=== PATIENT | female | born 1955 | race Caucasian/White ===

== ENCOUNTER 2018-05-19 13:07 | Inpatient (IN) | payer MEDICARE, MEDICAID ==
[~2018-05-19] VITALS: Ht 165.1 cm; Wt 53.6 kg
[~2018-05-19 13:07] MED LIST: CLA10T PO; GLIM1TAB46 PO; LISI-222 PO; LOP25T PO; METF500T PO
[2018-05-19 13:51] LABS: BASOPHILS % (AUTO) 0.5 % (0-1); EOSINOPHILS # (AUTO) 0.1 X10'3 (0-0.9); EOSINOPHILS % (AUTO) 1.3 % (0-6); HEMATOCRIT 40.9 % (35.0-45.0); HEMOGLOBIN 13.1 g/dl (12.0-16.0); LYMPHOCYTES # (AUTO) 1.1 X10'3 (1.1-4.8); LYMPHOCYTES % (AUTO) 13.7 % (21-51); MEAN CORPUSCULAR VOLUME 90.5 FL (78-98); MEAN PLATELET VOLUME 9.4 FL (7.4-10.4); MONOCYTES # (AUTO) 0.4 X10'3 (0-0.9); NEUTROPHILS # (AUTO) 6.6 X10'3 (1.8-7.7); NEUTROPHILS % (AUTO) 79.5 % (42-75); PLATELET COUNT 229 X10'3 (140-440); RED BLOOD COUNT 4.51 X10'6 (4.20-5.60); WHITE BLOOD COUNT 8.3 X10'3 (4.5-11.0)
[2018-05-19] MEDS ORDERED: ipratropium/albuterol 3ml nebule NEB ONE (14:00)
[2018-05-19] MEDS ORDERED: predniSONE 20 mg tablet PO ONE (14:00)
[2018-05-19 14:06] LABS: ALANINE AMINOTRANSFERASE 43 U/L (12-78); ALBUMIN 3.3 G/DL (3.4-5.0); ALBUMIN/GLOBULIN RATIO 1.1 (1.1-1.5); ALKALINE PHOSPHATASE 99 IU/L (46-116); ANION GAP 9 (8-16); ASPARTATE AMINO TRANSFERASE 25 U/L (10-37); BILIRUBIN,TOTAL 0.5 MG/DL (0.1-1.0); BLOOD UREA NITROGEN 27 MG/DL (7-18); BUN/CREATININE RATIO 37.5 (6.6-38.0); CHLORIDE 101 MMOL/L (99-107); CREATININE 0.72 MG/DL (0.40-0.90); GLUCOSE 203 MG/DL (70-104); SODIUM 138 MMOL/L (135-145); TOTAL CARBON DIOXIDE 28.4 MMOL/L (24-32); TOTAL PROTEIN 6.2 G/DL (6.4-8.2); eGFR 82 ML/MIN
[2018-05-19 14:13] LABS: INR 1.1 INR; PARTIAL THROMBOPLASTIN TIME 26 SECONDS (22-32)
[2018-05-19] MEDS ORDERED: aspirin 325mg tablet PO ONE (14:20)
[2018-05-19 14:34] LABS: D-DIMER 0.59 MG/L FEU (0-0.50)
[2018-05-19] MEDS ORDERED: furosemide 10 MG/1 ML 10ml inj IV ONE (14:55)
[2018-05-19] MEDS ORDERED: ondansetron/PF 4mg/2ml inj IV PRN (15:15)
[2018-05-19] MEDS ORDERED: mag hydrox/Alum hydrox/simeth 30ml oral suspension PO PRN (15:15)
[2018-05-19] MEDS ORDERED: acetaminophen 325mg tablet PO PRN (15:15)
[2018-05-19] MEDS ORDERED: magnesium hydroxide 30ml (MOM) UD suspension PO PRN (15:15)
[2018-05-19] MEDS ORDERED: potassium Cl 40MEQ/NS 500ml 500 ML IV PRN ×2 (15:15)
[2018-05-19] MEDS ORDERED: HYDROmorphone 1 mg/ml syringe IV PRN (15:15)
[2018-05-19] MEDS ORDERED: potassium Cl 20 mEq SR tablet PO PRN (15:15)
[2018-05-19] MEDS ORDERED: magnesium 4gm in 100ml NS 100 ML IV PRN (15:15)
[2018-05-19] MEDS ORDERED: iohexol 350MG/ML 100ml bottle IV ONE (15:20)
[2018-05-19] MEDS ORDERED: dextrose ORAL solution 15 GM/59 ML bottle PO PRN ×2 (15:25)
[2018-05-19] MEDS ORDERED: MESSAGE TO PHARMACY PO ONE (15:25)
[2018-05-19] MEDS ORDERED: dextrose 50%-water 50ml dispensing syringe IV PRN ×2 (15:25)
[2018-05-19] MEDS ORDERED: glucagon, human recombinant 1mg kit SUBCUT PRN (15:25)
[2018-05-19] MEDS ORDERED: azithromycin/NS 500mg/250ml 250 ML IV ONE (15:25)
[2018-05-19] MEDS: K and/or MAG REPLACEMENT MC SCH (15:30)
[2018-05-19] MEDS: CefTRIAXone/D5W-Rocephin 1gm 50 ML IV SCH (16:48)
[2018-05-19] MEDS: lisinopril 5mg tablet PO SCH (17:23)
[2018-05-19 17:27] LABS: HEMOGLOBIN A1C 8.1 % (4.5-6.2)
[2018-05-19] MEDS ORDERED: metoprolol tartrate 12.5mg (1/2 tablet) PO SCH (20:00)
[2018-05-19] MEDS ORDERED: CLOP75TA15 PO (21:33)
[2018-05-19] MEDS ORDERED: FURO20TA4 PO (21:33)
[2018-05-19] MEDS ORDERED: DIPH50CA46 PO (21:33)
[2018-05-19] MEDS ORDERED: HYDR-3965 PO (21:33)
[2018-05-19] MEDS ORDERED: ATOR40TA PO (21:33)
[2018-05-19] MEDS ORDERED: CARV3.122 PO (21:33)
[2018-05-19] MEDS ORDERED: LISI-604 PO (21:33)
[2018-05-19] MEDS ORDERED: METF1000 PO (21:33)
[2018-05-19] MEDS ORDERED: INSU100I31 SUBCUT (21:38)
[2018-05-19 22:00] VITALS: BP 148/86
[2018-05-19] MEDS: insulin glargine (Lantus) pen - multi-dose SQ SCH (22:44)
[2018-05-19] MEDS: insulin Lispro (HumaLOG) vial - multi-dose SQ SCH (22:46)
[2018-05-19] MEDS: furosemide 40mg/4ml inj IV SCH (22:47)
[2018-05-19] MEDS: methylPREDNISolone sod succ/PF 40mg inj. IV SCH (22:56)
[2018-05-19] MEDS: heparin, porcine 5000 units/ml vial SQ SCH (22:59)
[2018-05-19] MEDS ORDERED: HYDROcodone/acetaminophen 5mg/325mg tablet PO PRN (23:25)
[2018-05-19] MEDS: HYDROcodone/acetaminophen 10/325mg tab PO PRN (23:28)
[2018-05-20] MEDS: methylPREDNISolone sod succ/PF 40mg inj. IV SCH ×2 (02:00→07:47)
[2018-05-20] MEDS: HYDROcodone/acetaminophen 10/325mg tab PO PRN ×5 (04:35→21:59)
[2018-05-20 06:00] VITALS: BP 131/80
[2018-05-20 06:11] LABS: BASOPHILS % (AUTO) 0.4 % (0-1); EOSINOPHILS # (AUTO) 0.1 X10'3 (0-0.9); EOSINOPHILS % (AUTO) 0.9 % (0-6); LYMPHOCYTES # (AUTO) 0.6 X10'3 (1.1-4.8); LYMPHOCYTES % (AUTO) 9.6 % (21-51); MEAN CORPUSCULAR HEMOGLOBIN 29.1 PG (27.0-31.0); MEAN CORPUSCULAR HGB CONC 32.5 % (33.0-36.5); MEAN CORPUSCULAR VOLUME 89.5 FL (78-98); MEAN PLATELET VOLUME 9.9 FL (7.4-10.4); MONOCYTES # (AUTO) 0.1 X10'3 (0-0.9); MONOCYTES % (AUTO) 1.7 % (2-12); NEUTROPHILS # (AUTO) 5.9 X10'3 (1.8-7.7); NEUTROPHILS % (AUTO) 87.4 % (42-75); PLATELET COUNT 237 X10'3 (140-440); RED BLOOD COUNT 4.81 X10'6 (4.20-5.60); RED CELL DISTRIBUTION WIDTH 14.9 % (11.5-14.5); WHITE BLOOD COUNT 6.8 X10'3 (4.5-11.0)
[2018-05-20 06:48] LABS: ALANINE AMINOTRANSFERASE 40 U/L (12-78); ALBUMIN 3.3 G/DL (3.4-5.0); ALBUMIN/GLOBULIN RATIO 1.1 (1.1-1.5); ALKALINE PHOSPHATASE 107 IU/L (46-116); ANION GAP 11 (8-16); ASPARTATE AMINO TRANSFERASE 18 U/L (10-37); BILIRUBIN,TOTAL 0.3 MG/DL (0.1-1.0); BLOOD UREA NITROGEN 36 MG/DL (7-18); BUN/CREATININE RATIO 38.3 (6.6-38.0); CALCIUM 8.7 MG/DL (8.5-10.1); CHLORIDE 99 MMOL/L (99-107); CREATININE 0.94 MG/DL (0.40-0.90); GLUCOSE 378 MG/DL (70-104); MAGNESIUM 1.3 MG/DL (1.5-2.4); POTASSIUM 3.8 MMOL/L (3.5-5.1); SODIUM 137 MMOL/L (135-145); TOTAL CARBON DIOXIDE 27.4 MMOL/L (24-32); TOTAL PROTEIN 6.3 G/DL (6.4-8.2); eGFR 60 ML/MIN
[2018-05-20] MEDS: furosemide 40mg/4ml inj IV SCH ×2 (07:47→19:31)
[2018-05-20] MEDS: lisinopril 5mg tablet PO SCH (07:47)
[2018-05-20] MEDS: aspirin 81mg tab.chew PO SCH (07:47)
[2018-05-20] MEDS: CefTRIAXone/D5W-Rocephin 1gm 50 ML IV SCH (07:48)
[2018-05-20] MEDS: heparin, porcine 5000 units/ml vial SQ SCH ×2 (07:48→19:31)
[2018-05-20] MEDS ORDERED: HYDROcodone/acetaminophen 5mg/325mg tablet PO PRN (08:00)
[2018-05-20] MEDS: lisinopril 10 MG tablet PO SCH (08:00)
[2018-05-20] MEDS: insulin Lispro (HumaLOG) vial - multi-dose SQ SCH ×3 (09:14→18:38)
[2018-05-20] MEDS: loratadine 10mg tablet PO SCH (09:18)
[2018-05-20] MEDS: nicotine 14mg patch - 24hr TD SCH (09:18)
[2018-05-20] MEDS: carVEDilol 3.125mg tablet PO SCH ×2 (09:18→19:31)
[2018-05-20] MEDS: magnesium Cl slow-release 64mg tablet PO PRN ×2 (09:18→19:35)
[2018-05-20] MEDS: atorvastatin 20mg tablet PO SCH (09:19)
[2018-05-20] MEDS: clopidogrel 75mg tablet PO SCH (09:19)
[2018-05-20 10:01] VITALS: BP 134/109
[2018-05-20 18:00] VITALS: BP 126/82
[2018-05-20 19:26] VITALS: BP 143/79
[2018-05-20] MEDS: lactobacillus rhamnosus 10,000 MMU CELLS/CAPSULE PO SCH (19:31)
[2018-05-20] MEDS: insulin glargine (Lantus) pen - multi-dose SQ SCH ×2 (20:53→21:00)
[2018-05-20] MEDS ORDERED: diphenhydrAMINE 25mg capsule PO PRN (21:00)
[2018-05-20 22:00] VITALS: BP 152/68
[2018-05-21 06:30] LABS: BASOPHILS # (AUTO) 0.1 X10'3 (0-0.2); BASOPHILS % (AUTO) 0.4 % (0-1); EOSINOPHILS # (AUTO) 0.2 X10'3 (0-0.9); EOSINOPHILS % (AUTO) 1.3 % (0-6); HEMATOCRIT 44.8 % (35.0-45.0); HEMOGLOBIN 14.5 g/dl (12.0-16.0); LYMPHOCYTES # (AUTO) 2.2 X10'3 (1.1-4.8); MEAN CORPUSCULAR HEMOGLOBIN 29.2 PG (27.0-31.0); MEAN CORPUSCULAR HGB CONC 32.3 % (33.0-36.5); MEAN CORPUSCULAR VOLUME 90.4 FL (78-98); MEAN PLATELET VOLUME 9.5 FL (7.4-10.4); MONOCYTES # (AUTO) 0.8 X10'3 (0-0.9); MONOCYTES % (AUTO) 6.5 % (2-12); NEUTROPHILS # (AUTO) 9.8 X10'3 (1.8-7.7); NEUTROPHILS % (AUTO) 74.8 % (42-75); PLATELET COUNT 252 X10'3 (140-440); RED BLOOD COUNT 4.96 X10'6 (4.20-5.60); RED CELL DISTRIBUTION WIDTH 14.9 % (11.5-14.5); WHITE BLOOD COUNT 13.1 X10'3 (4.5-11.0)
[2018-05-21 06:49] LABS: ALBUMIN 3.1 G/DL (3.4-5.0); ANION GAP 7 (8-16); BLOOD UREA NITROGEN 34 MG/DL (7-18); BUN/CREATININE RATIO 53.1 (6.6-38.0); CALCIUM 8.7 MG/DL (8.5-10.1); CHLORIDE 103 MMOL/L (99-107); CREATININE 0.64 MG/DL (0.40-0.90); GLUCOSE 94 MG/DL (70-104); MAGNESIUM 1.7 MG/DL (1.5-2.4); POTASSIUM 3.2 MMOL/L (3.5-5.1); SODIUM 142 MMOL/L (135-145); TOTAL CARBON DIOXIDE 31.6 MMOL/L (24-32); eGFR > 90 ML/MIN
[2018-05-21 06:52] VITALS: BP 136/97
[2018-05-21] MEDS: heparin, porcine 5000 units/ml vial SQ SCH ×2 (07:28→21:06)
[2018-05-21] MEDS: furosemide 40mg/4ml inj IV SCH ×2 (07:28→21:06)
[2018-05-21] MEDS: aspirin 81mg tab.chew PO SCH (07:29)
[2018-05-21] MEDS: carVEDilol 3.125mg tablet PO SCH ×2 (07:29→21:05)
[2018-05-21] MEDS: predniSONE 20 mg tablet PO SCH (07:29)
[2018-05-21] MEDS: lactobacillus rhamnosus 10,000 MMU CELLS/CAPSULE PO SCH ×2 (07:30→21:05)
[2018-05-21] MEDS: clopidogrel 75mg tablet PO SCH (07:30)
[2018-05-21] MEDS: atorvastatin 20mg tablet PO SCH (07:30)
[2018-05-21] MEDS: lisinopril 10 MG tablet PO SCH (07:30)
[2018-05-21] MEDS: loratadine 10mg tablet PO SCH (07:30)
[2018-05-21] MEDS: nicotine 14mg patch - 24hr TD SCH (07:30)
[2018-05-21] MEDS: CefTRIAXone/D5W-Rocephin 1gm 50 ML IV SCH (07:31)
[2018-05-21] MEDS: HYDROcodone/acetaminophen 10/325mg tab PO PRN ×2 (07:39→21:16)
[2018-05-21] MEDS: K and/or MAG REPLACEMENT MC SCH (07:42)
[2018-05-21] MEDS: potassium Cl 20 mEq SR tablet PO PRN ×2 (07:44→18:53)
[2018-05-21] MEDS: insulin Lispro (HumaLOG) vial - multi-dose SQ SCH ×3 (09:59→18:51)
[2018-05-21 11:12] VITALS: BP 120/82
[2018-05-21 18:00] VITALS: BP 123/68
[2018-05-21] MEDS: insulin glargine (Lantus) pen - multi-dose SQ SCH ×2 (21:00→21:15)
[2018-05-21 21:19] VITALS: BP 113/73
[2018-05-21 22:00] VITALS: BP 144/86
[2018-05-22] MEDS: potassium Cl 20 mEq SR tablet PO PRN (02:04)
[2018-05-22 05:58] LABS: BASOPHILS # (AUTO) 0.1 X10'3 (0-0.2); BASOPHILS % (AUTO) 0.7 % (0-1); EOSINOPHILS # (AUTO) 0.1 X10'3 (0-0.9); EOSINOPHILS % (AUTO) 0.8 % (0-6); HEMATOCRIT 43.5 % (35.0-45.0); LYMPHOCYTES # (AUTO) 2.6 X10'3 (1.1-4.8); LYMPHOCYTES % (AUTO) 23.2 % (21-51); MEAN CORPUSCULAR HEMOGLOBIN 28.9 PG (27.0-31.0); MEAN CORPUSCULAR HGB CONC 32.2 % (33.0-36.5); MEAN CORPUSCULAR VOLUME 89.7 FL (78-98); MEAN PLATELET VOLUME 9.3 FL (7.4-10.4); MONOCYTES # (AUTO) 0.9 X10'3 (0-0.9); MONOCYTES % (AUTO) 8.2 % (2-12); NEUTROPHILS # (AUTO) 7.5 X10'3 (1.8-7.7); NEUTROPHILS % (AUTO) 67.1 % (42-75); PLATELET COUNT 264 X10'3 (140-440); RED BLOOD COUNT 4.85 X10'6 (4.20-5.60); WHITE BLOOD COUNT 11.2 X10'3 (4.5-11.0)
[2018-05-22 06:14] LABS: ANION GAP 5 (8-16); BLOOD UREA NITROGEN 36 MG/DL (7-18); BUN/CREATININE RATIO 48.6 (6.6-38.0); CALCIUM 8.6 MG/DL (8.5-10.1); CHLORIDE 105 MMOL/L (99-107); CREATININE 0.74 MG/DL (0.40-0.90); GLUCOSE 103 MG/DL (70-104); MAGNESIUM 1.9 MG/DL (1.5-2.4); POTASSIUM 4.6 MMOL/L (3.5-5.1); SODIUM 141 MMOL/L (135-145); TOTAL CARBON DIOXIDE 30.6 MMOL/L (24-32); eGFR 79 ML/MIN
[2018-05-22 06:32] VITALS: BP 115/73
[2018-05-22] MEDS: HYDROcodone/acetaminophen 10/325mg tab PO PRN ×3 (07:30→21:20)
[2018-05-22] MEDS: K and/or MAG REPLACEMENT MC SCH (08:00)
[2018-05-22] MEDS: atorvastatin 20mg tablet PO SCH (08:19)
[2018-05-22] MEDS: carVEDilol 3.125mg tablet PO SCH ×2 (08:19→21:10)
[2018-05-22] MEDS: lactobacillus rhamnosus 10,000 MMU CELLS/CAPSULE PO SCH ×2 (08:19→21:10)
[2018-05-22] MEDS: predniSONE 20 mg tablet PO SCH (08:19)
[2018-05-22] MEDS: loratadine 10mg tablet PO SCH (08:19)
[2018-05-22] MEDS: clopidogrel 75mg tablet PO SCH (08:19)
[2018-05-22] MEDS: lisinopril 10 MG tablet PO SCH (08:23)
[2018-05-22] MEDS: aspirin 81mg tab.chew PO SCH (08:23)
[2018-05-22] MEDS: nicotine 14mg patch - 24hr TD SCH (08:26)
[2018-05-22] MEDS: heparin, porcine 5000 units/ml vial SQ SCH ×2 (08:27→21:11)
[2018-05-22] MEDS: insulin Lispro (HumaLOG) vial - multi-dose SQ SCH ×4 (08:58→21:14)
[2018-05-22] MEDS: furosemide 40mg/4ml inj IV SCH ×2 (09:01→21:09)
[2018-05-22] MEDS: CefTRIAXone/D5W-Rocephin 1gm 50 ML IV SCH (09:01)
[2018-05-22 11:32] VITALS: BP 114/67
[2018-05-22 18:00] VITALS: BP 139/86
[2018-05-22] MEDS: insulin glargine (Lantus) pen - multi-dose SQ SCH ×2 (21:00→21:16)
[2018-05-22 22:00] VITALS: BP 140/85
[2018-05-23] MEDS: HYDROcodone/acetaminophen 10/325mg tab PO PRN ×3 (05:25→14:49)
[2018-05-23 06:00] VITALS: BP 133/90
[2018-05-23] MEDS: nicotine 14mg patch - 24hr TD SCH (07:50)
[2018-05-23] MEDS: CefTRIAXone/D5W-Rocephin 1gm 50 ML IV SCH (07:50)
[2018-05-23] MEDS: loratadine 10mg tablet PO SCH (07:54)
[2018-05-23] MEDS: heparin, porcine 5000 units/ml vial SQ SCH (07:54)
[2018-05-23] MEDS: lactobacillus rhamnosus 10,000 MMU CELLS/CAPSULE PO SCH (07:55)
[2018-05-23] MEDS: carVEDilol 3.125mg tablet PO SCH (07:55)
[2018-05-23] MEDS: predniSONE 20 mg tablet PO SCH (07:55)
[2018-05-23] MEDS: atorvastatin 20mg tablet PO SCH (07:55)
[2018-05-23] MEDS: clopidogrel 75mg tablet PO SCH (07:55)
[2018-05-23] MEDS: aspirin 81mg tab.chew PO SCH (07:58)
[2018-05-23] MEDS: lisinopril 10 MG tablet PO SCH (07:58)
[2018-05-23] MEDS: furosemide 40mg/4ml inj IV SCH (07:58)
[2018-05-23] MEDS: insulin Lispro (HumaLOG) vial - multi-dose SQ SCH ×3 (08:40→18:51)
[2018-05-23 10:00] VITALS: BP 103/63
[2018-05-23] MEDS ORDERED: FLUT1BLS3 NAS (15:04)
[2018-05-23] MEDS ORDERED: UMEC62.5 NAS (15:04)
[2018-05-23] MEDS ORDERED: NICO-631 TD (15:04)
[2018-05-23] MEDS ORDERED: FURO40TA4 PO (15:04)
[2018-05-23] MEDS ORDERED: HYDR-3965 PO (15:04)
[2018-05-23] MEDS ORDERED: CEFD300C3 PO (15:04)
[2018-05-23] MEDS ORDERED: ALBU18HF2 INH (15:04)
[2018-05-23] MEDS ORDERED: ASPI-1265 PO (15:04)
== END 2018-05-23 19:00 | disposition home or self-care (01) | DRG 720 ==
LOC: ER 13:07 → ED HOLD 15:14 → ORTHO 4S 21:54
PROVIDERS: ADMIT Internal Medicine; ATTEND Hospitalist
PROC: B32T1ZZ Computerized Tomography (CT Scan) of Left Pulmonary Artery using Low Osmolar Contrast (ICD-10-PCS; principal; 2018-05-19)
PROC: B32S1ZZ Computerized Tomography (CT Scan) of Right Pulmonary Artery using Low Osmolar Contrast (ICD-10-PCS; 2018-05-19)
DX: A41.9 Sepsis, unspecified organism (principal); I50.33 Acute on chronic diastolic (congestive) heart failure; E44.0 Moderate protein-calorie malnutrition; J18.9 Pneumonia, unspecified organism; E11.42 Type 2 diabetes mellitus with diabetic polyneuropathy; I11.0 Hypertensive heart disease with heart failure; J44.1 Chronic obstructive pulmonary disease with (acute) exacerbation; I25.10 Atherosclerotic heart disease of native coronary artery without angina pectoris; E87.6 Hypokalemia; F17.200 Nicotine dependence, unspecified, uncomplicated; J44.0 Chronic obstructive pulmonary disease with (acute) lower respiratory infection; Z68.1 Body mass index [BMI] 19.9 or less, adult; E78.5 Hyperlipidemia, unspecified; G89.29 Other chronic pain; R49.0 Dysphonia; M47.892 Other spondylosis, cervical region; Z95.5 Presence of coronary angioplasty implant and graft; Z79.84 Long term (current) use of oral hypoglycemic drugs; Z79.899 Other long term (current) drug therapy
CPT/HCPCS: 36415; 71045; 71275; 80048; 80053; 82948; 83036; 83735; 83880; 84484; 85025; 85379; 85610; 85730; 87070; 93005; 93306; 94640; 94760; 99285; G0378; J0456; J0696; J1170; J1644; J1815; J1940; J2920; J7512; Q9967

== ENCOUNTER 2018-09-05 18:49 | Inpatient (IN) | payer MEDICARE, MEDICAID | END 2018-09-13 23:45 | disposition short-term general hospital (02) | LOC: ER 18:49 → PCU 3S 21:50 | DX: I21.A1 Myocardial infarction type 2 (principal); I50.23 Acute on chronic systolic (congestive) heart failure; I48.91 Unspecified atrial fibrillation; I34.0 Nonrheumatic mitral (valve) insufficiency; I27.20 Pulmonary hypertension, unspecified; M47.892 Other spondylosis, cervical region ==

== ENCOUNTER 2018-12-15 12:40 | Inpatient (IN) | payer MEDICARE, MEDICAID ==
[~2018-12-15] VITALS: Ht 165.1 cm; Wt 45.0 kg
[~2018-12-15 12:40] MED LIST changes: +ALBU18HF2 INH; +ASPI-1265 PO; +ATOR40TA PO; +CLOP75TA15 PO; +FLUT1BLS3 NAS; -GLIM1TAB46 PO; +INSU100I31 SUBCUT; -LISI-222 PO; +LISI-604 PO; -LOP25T PO; -METF500T PO; +NICO-631 TD; +UMEC62.5 NAS
[2018-12-15 14:06] LABS: BASOPHILS # (AUTO) 0.1 X10'3 (0-0.2); BASOPHILS % (AUTO) 1.2 % (0-1); EOSINOPHILS # (AUTO) 0.1 X10'3 (0-0.9); EOSINOPHILS % (AUTO) 1.2 % (0-6); HEMATOCRIT 40.8 % (35.0-45.0); HEMOGLOBIN 13.1 g/dl (12.0-16.0); LYMPHOCYTES # (AUTO) 1.6 X10'3 (1.1-4.8); MEAN CORPUSCULAR HEMOGLOBIN 27.2 PG (27.0-31.0); MEAN CORPUSCULAR VOLUME 85.1 FL (78-98); MEAN PLATELET VOLUME 8.7 FL (7.4-10.4); MONOCYTES # (AUTO) 0.6 X10'3 (0-0.9); MONOCYTES % (AUTO) 8.5 % (2-12); NEUTROPHILS # (AUTO) 4.5 X10'3 (1.8-7.7); NEUTROPHILS % (AUTO) 66.1 % (42-75); PLATELET COUNT 355 X10'3 (140-440); WHITE BLOOD COUNT 6.8 X10'3 (4.5-11.0)
[2018-12-15 14:15] LABS: PARTIAL THROMBOPLASTIN TIME 24 SECONDS (22-32)
[2018-12-15 14:17] LABS: ALANINE AMINOTRANSFERASE 41 U/L (12-78); ALBUMIN 3.3 G/DL (3.4-5.0); ALBUMIN/GLOBULIN RATIO 0.9 (1.1-1.5); ALKALINE PHOSPHATASE 111 IU/L (46-116); ANION GAP 5 (8-16); ASPARTATE AMINO TRANSFERASE 29 U/L (10-37); BILIRUBIN,TOTAL 0.4 MG/DL (0.1-1.0); BLOOD UREA NITROGEN 19 MG/DL (7-18); BUN/CREATININE RATIO 26.8 (6.6-38.0); CALCIUM 9.4 MG/DL (8.5-10.1); CHLORIDE 102 MMOL/L (99-107); CREATININE 0.71 MG/DL (0.40-0.90); GLUCOSE 75 MG/DL (70-104); POTASSIUM 4.3 MMOL/L (3.5-5.1); SODIUM 139 MMOL/L (135-145); TOTAL CARBON DIOXIDE 32.2 MMOL/L (24-32); TOTAL PROTEIN 6.9 G/DL (6.4-8.2); eGFR 83 ML/MIN
--- NOTE | 2018-12-15 14:25 | NUR ---
ECHO in progress.
--- NOTE | 2018-12-15 14:33 | NUR ---
MEDICAL RELEASE FAXED TO [facility], AWAITING FAX BACK OF OPERATIVE NOTES AND DISCHARGE SUMMARY.
[2018-12-15] MEDS ORDERED: morphine 4 MG/ML inj SYRINge IV ONE (16:30)
[2018-12-15] MEDS ORDERED: oxyCODONE/APAP 10/325mg tablet PO ONE (16:30)
[2018-12-15] MEDS ORDERED: morphine 2 MG/ML inj. syringe IV PRN (17:10)
[2018-12-15] MEDS ORDERED: magnesium 4gm in 100ml NS 100 ML IV PRN (17:10)
[2018-12-15] MEDS ORDERED: potassium Cl 40MEQ/NS 500ml 500 ML IV PRN (17:10)
[2018-12-15] MEDS ORDERED: mag hydrox/Alum hydrox/simeth 30ml oral suspension PO PRN (17:10)
[2018-12-15] MEDS ORDERED: potassium Cl 20 mEq SR tablet PO PRN ×2 (17:10)
[2018-12-15] MEDS ORDERED: magnesium Cl slow-release 64mg tablet PO PRN (17:10)
[2018-12-15] MEDS ORDERED: potassium CL 10mEq/100ml bag 100 ML IV PRN ×2 (17:10→17:50)
[2018-12-15] MEDS ORDERED: acetaminophen 325mg tablet PO PRN ×2 (17:10)
[2018-12-15] MEDS ORDERED: ondansetron/PF 4mg/2ml inj IV PRN (17:10)
[2018-12-15] MEDS ORDERED: magnesium 2GM in 50ml NS 50 ML IV PRN (17:10)
[2018-12-15] MEDS ORDERED: POTA10TA36 PO (17:21)
[2018-12-15] MEDS ORDERED: CLOP75TA35 PO (17:21)
[2018-12-15] MEDS ORDERED: ASPI-1130 PO (17:21)
[2018-12-15] MEDS ORDERED: FURO40TA4 PO (17:21)
[2018-12-15] MEDS ORDERED: METF-438 PO (17:21)
[2018-12-15] MEDS ORDERED: ATOR40TA72 PO (17:21)
[2018-12-15] MEDS ORDERED: LISI10TA4 PO (17:21)
[2018-12-15] MEDS ORDERED: UMEC1DIS PO (17:21)
[2018-12-15] MEDS ORDERED: NICO1PAT36 TOP (17:21)
[2018-12-15] MEDS ORDERED: AZIT-63 PO (17:21)
[2018-12-15] MEDS ORDERED: SPIR25TA5 PO (17:21)
[2018-12-15] MEDS ORDERED: OXYC-511 PO (17:21)
[2018-12-15] MEDS ORDERED: FURO20TA4 PO (17:21)
[2018-12-15] MEDS ORDERED: ALBU18HF2 INH (17:22)
[2018-12-15] MEDS ORDERED: IPRA3AMP31 IH (17:22)
[2018-12-15] MEDS ORDERED: IPRA4AER IH (17:24)
[2018-12-15] MEDS ORDERED: furosemide 10 MG/1 ML 10ml inj IV ONE (17:25)
[2018-12-15] MEDS ORDERED: metoprolol tartrate 1mg/ml inj IV ONE (17:25)
[2018-12-15] MEDS ORDERED: iohexol 350MG/ML 100ml bottle IV ONE (17:43)
--- NOTE | 2018-12-15 17:43 | NUR ---
DR. FAUST AT BEDSIDE.
[2018-12-15] MEDS ORDERED: INSU100I31 SUBCUT (18:12)
[2018-12-15] MEDS ORDERED: glucagon, human recombinant 1mg kit SUBCUT PRN ×2 (18:15→23:10)
[2018-12-15] MEDS ORDERED: MESSAGE TO PHARMACY PO ONE ×2 (18:15→23:10)
[2018-12-15] MEDS ORDERED: dextrose ORAL solution 15 GM/59 ML bottle PO PRN ×4 (18:15→23:10)
[2018-12-15] MEDS ORDERED: dextrose 50%-water 50ml dispensing syringe IV PRN ×2 (18:15)
[2018-12-15] MEDS ORDERED: albuterol 2.5 MG/3 ML nebule NEB PRN (18:35)
--- NOTE | 2018-12-15 19:06 | NUR ---
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
[2018-12-15] MEDS: insulin glargine (Lantus) pen - multi-dose SQ SCH (21:00)
[2018-12-15] MEDS: docusate sod 100mg capsule PO SCH (21:25)
[2018-12-15] MEDS: heparin, porcine 5000 units/ml vial SQ SCH (21:25)
[2018-12-15] MEDS: HYDROcodone/acetaminophen 5mg/325mg tablet PO PRN (21:27)
[2018-12-15 22:00] VITALS: BP 120/79
[2018-12-15] MEDS ORDERED: insulin Lispro (HumaLOG) vial - multi-dose SQ SCH (23:10)
[2018-12-15] MEDS ORDERED: magnesium 2GM in 50ml NS 50 ML IV ONE (23:20)
[2018-12-16 05:34] LABS: ALANINE AMINOTRANSFERASE 41 U/L (12-78); ALBUMIN 3.2 G/DL (3.4-5.0); ALBUMIN/GLOBULIN RATIO 0.9 (1.1-1.5); ALKALINE PHOSPHATASE 119 IU/L (46-116); ANION GAP 9 (8-16); ASPARTATE AMINO TRANSFERASE 28 U/L (10-37); BILIRUBIN,TOTAL 0.3 MG/DL (0.1-1.0); BLOOD UREA NITROGEN 22 MG/DL (7-18); BUN/CREATININE RATIO 25.9 (6.6-38.0); CALCIUM 9.4 MG/DL (8.5-10.1); CHLORIDE 98 MMOL/L (99-107); CREATININE 0.85 MG/DL (0.40-0.90); GLUCOSE 193 MG/DL (70-104); MAGNESIUM 2.6 MG/DL (1.5-2.4); POTASSIUM 3.9 MMOL/L (3.5-5.1); SODIUM 136 MMOL/L (135-145); TOTAL CARBON DIOXIDE 29.4 MMOL/L (24-32); TOTAL PROTEIN 6.7 G/DL (6.4-8.2); TROPONIN I 0.08 NG/ML (0.0-0.05); eGFR 67 ML/MIN
[2018-12-16 05:43] LABS: BASOPHILS # (AUTO) 0.1 X10'3 (0-0.2); EOSINOPHILS # (AUTO) 0.1 X10'3 (0-0.9); HEMATOCRIT 42.4 % (35.0-45.0); HEMOGLOBIN 13.4 g/dl (12.0-16.0); LYMPHOCYTES # (AUTO) 1.8 X10'3 (1.1-4.8); LYMPHOCYTES % (AUTO) 24.3 % (21-51); MEAN CORPUSCULAR HEMOGLOBIN 27.1 PG (27.0-31.0); MEAN CORPUSCULAR HGB CONC 31.7 g/dL (33.0-36.5); MEAN CORPUSCULAR VOLUME 85.7 FL (78-98); MEAN PLATELET VOLUME 9.1 FL (7.4-10.4); MONOCYTES # (AUTO) 0.5 X10'3 (0-0.9); MONOCYTES % (AUTO) 6.8 % (2-12); NEUTROPHILS # (AUTO) 4.8 X10'3 (1.8-7.7); NEUTROPHILS % (AUTO) 65.9 % (42-75); PLATELET COUNT 336 X10'3 (140-440); RED BLOOD COUNT 4.95 X10'6 (4.20-5.60); RED CELL DISTRIBUTION WIDTH 18.3 % (11.5-14.5); WHITE BLOOD COUNT 7.2 X10'3 (4.5-11.0)
[2018-12-16 06:00] VITALS: BP 137/103
--- NOTE | 2018-12-16 06:48 | NUR ---
Patient in room PCU 3026. I have received report from BUNNY Church and had the opportunity to ask questions and assume patient care. Patient is currently resting in bed, bed locked and low, call light in reach, no acute distress, will continue to monitor.
[2018-12-16] MEDS ORDERED: lisinopril 10 MG tablet PO SCH (08:00)
[2018-12-16] MEDS ORDERED: K and/or MAG REPLACEMENT MC SCH (08:00)
[2018-12-16] MEDS ORDERED: CefTRIAXone 2gm/D5W 50ml 50 ML IV SCH (08:00)
[2018-12-16] MEDS ORDERED: UMECLIDINIUM BRM IH SCH (08:00)
[2018-12-16] MEDS ORDERED: VILANTEROL TR IH SCH (08:00)
[2018-12-16] MEDS ORDERED: furosemide 40mg/4ml inj IV SCH (08:00)
[2018-12-16] MEDS ORDERED: nicotine 21mg patch - 24 hr TD SCH (08:00)
[2018-12-16] MEDS ORDERED: atorvastatin 20mg tablet PO SCH (08:00)
[2018-12-16] MEDS ORDERED: clopidogrel 75mg tablet PO SCH (08:00)
[2018-12-16] MEDS ORDERED: spironolactone 25 MG tablet PO SCH (08:00)
[2018-12-16] MEDS ORDERED: aspirin 81mg tablet.DR PO SCH (08:00)
[2018-12-16] MEDS: heparin, porcine 5000 units/ml vial SQ SCH ×2 (08:46→19:41)
[2018-12-16] MEDS: docusate sod 100mg capsule PO SCH ×2 (08:47→19:40)
[2018-12-16] MEDS: insulin Lispro (HumaLOG) vial - multi-dose SQ SCH ×2 (08:49→18:46)
[2018-12-16] MEDS: carVEDilol 3.125mg tablet PO SCH ×2 (09:36→19:40)
[2018-12-16] MEDS: ipratropium/albuterol 3ml nebule NEB PRN ×2 (11:12→16:58)
[2018-12-16 11:39] VITALS: BP 101/65
[2018-12-16] MEDS: HYDROcodone/acetaminophen 5mg/325mg tablet PO PRN ×2 (11:47→21:03)
--- NOTE | 2018-12-16 14:16 | NUR ---
Patient only nibbling at tray, family brought in [facility]. pre-lunch BG was only 75 and patient has been prolonged in eating her food, will recheck blood sugar before dinner and treat appropriately at that time as unable to calculate carbohydrate intake at this time. Non-compliant care plan entered as patient continues to eat items from home after being educated on her prescribed meals.
--- NOTE | 2018-12-16 16:00 | NUR ---
DM Consult: A1C 7.8. Pt not present during RD visit. Written DM ed w/ RD contact information left at bedside in case further questions. BMI noted at 16.5. Pt has mild weakness and edema present but PO 100% heart healthy/carb controlled meals great given current wt meeting needs. Since unable to examine visual signs of malnutrition at this time; pt does not qualify for malnutrition. Will continue to monitor this admit for muscle/fat wasting signs and additional malnutrition criteria. Current wt 45kg chair scale and in August bed scale wt 61kg; likely some error between wt methods. Will need to f/u for more accurate pt hx once pt available to be seen by RD. Addendum: 12/16/18 at [address] Amended: Links added.
[2018-12-16 17:00] VITALS: BP 93/76
--- NOTE | 2018-12-16 17:23 | NUR ---
Paged Case Management: ANGELINA [id number] ACUTE TRANSFER PAPERWORK FAXED FROM [facility], WILL PLACE IN CHART
--- NOTE | 2018-12-16 18:24 | NUR ---
Problems reprioritized. Patient report given, questions answered & plan of care reviewed with BUNNY Church. Patient currently resting in bed, bed locked and low, call lgsky in reach, patient stable at shift change.
--- NOTE | 2018-12-16 18:25 | NUR ---
[place] documentation: I have reviewed and agree with interventions, assessments performed and documented by BUNNY Gonzalez.
[2018-12-16 19:00] VITALS: BP 139/66
[2018-12-16] MEDS ORDERED: lactobacillus rhamnosus 10,000 MMU CELLS/CAPSULE PO SCH (20:00)
[2018-12-16] MEDS ORDERED: insulin glargine (Lantus) pen - multi-dose SQ SCH (21:00)
[2018-12-16] MEDS: insulin glargine (Lantus) pen - multi-dose SQ SCH (21:03)
[2018-12-16 23:00] VITALS: BP 111/84
--- NOTE | 2018-12-16 23:15 | NUR ---
Problems reprioritized. Patient report given, questions answered & plan of care reviewed with BUNNY Patel at [facility]. Patient currently resting in bed, bed locked and low, and call light w/in reach. Patient stable and awaiting transfer to [facility]. Patients medication were given to her nephew, Pako Macias per patient's request, who will take them home.
--- NOTE | 2018-12-16 23:54 | NUR ---
Patient being transferred to [facility] via [facility]. Report given to flight RN. No apparent s/s of distress. Pt took belongings. Home medications were sent home with family earlier in the evening.
== END 2018-12-16 23:58 | disposition short-term general hospital (02) | DRG 281 ==
LOC: ER 12:40 → PCU 3S 19:31
PROVIDERS: ADMIT Internal Medicine; ATTEND Internal Medicine
PROC: B32T1ZZ Computerized Tomography (CT Scan) of Left Pulmonary Artery using Low Osmolar Contrast (ICD-10-PCS; principal; 2018-12-15)
PROC: B3201ZZ Computerized Tomography (CT Scan) of Thoracic Aorta using Low Osmolar Contrast (ICD-10-PCS; 2018-12-15)
PROC: B32S1ZZ Computerized Tomography (CT Scan) of Right Pulmonary Artery using Low Osmolar Contrast (ICD-10-PCS; 2018-12-15)
DX: I50.23 Acute on chronic systolic (congestive) heart failure (principal); I21.A1 Myocardial infarction type 2; I47.1 Supraventricular tachycardia; E11.65 Type 2 diabetes mellitus with hyperglycemia; E78.5 Hyperlipidemia, unspecified; F41.9 Anxiety disorder, unspecified; G89.29 Other chronic pain; I08.1 Rheumatic disorders of both mitral and tricuspid valves; I25.10 Atherosclerotic heart disease of native coronary artery without angina pectoris; I25.5 Ischemic cardiomyopathy; I27.20 Pulmonary hypertension, unspecified; I48.91 Unspecified atrial fibrillation; J44.9 Chronic obstructive pulmonary disease, unspecified; M48.02 Spinal stenosis, cervical region; Z79.899 Other long term (current) drug therapy; Z82.5 Family history of asthma and other chronic lower respiratory diseases; Z85.828 Personal history of other malignant neoplasm of skin; Z87.11 Personal history of peptic ulcer disease; Z95.5 Presence of coronary angioplasty implant and graft; Z95.818 Presence of other cardiac implants and grafts; Z71.6 Tobacco abuse counseling; Z79.82 Long term (current) use of aspirin; Z87.891 Personal history of nicotine dependence; Z82.49 Family history of ischemic heart disease and other diseases of the circulatory system
CPT/HCPCS: 36415; 71045; 71275; 80053; 82948; 83036; 83605; 83735; 83880; 84484; 85025; 85610; 85730; 87040; 93005; 93306; 94640; 94760; 96374; 96375; 99285; G0378; J0696; J1644; J1815; J1940; J2270; J3475; J3490; Q9967